=== PATIENT | female | born 1945 | race Caucasian/White ===

== ENCOUNTER 2018-12-25 10:47 | Day surgery (SDC) ==
--- NOTE | 2018-12-23 16:31 | EKG Report ---
Test Performed on : 12/23/2018 4:18:39 PM Test Reason : PAT Blood Pressure : / mmHG Vent. Rate : 080 BPM Atrial Rate : 080 BPM P-R Int : 152 ms QRS Dur : 068 ms QT Int : 348 ms P-R-T Axes : 068 035 068 degrees QTc Int : 401 ms Normal sinus rhythm. Low voltage QRS Septal infarct (cited on or before 11-FEB-2017) Abnormal ECG When compared with ECG of 11-FEB-2017 13:50, No significant change was found Confirmed by Og Cardoza MD ([id number]) on 12/27/2018 9:30:42 PM
[2018-12-23 16:40] LABS: BASO# 0.02 X1000 (0.0-0.2); BASO% 0.2 % (0.0-0.8); EOS# 0.06 X1000 (0.0-0.7); EOS% 0.6 % (0.0-10.0); HEMATOCRIT 37.2 % (37.0-47.0); HEMOGLOBIN 12.7 g/dL (12.0-16.0); IMM GRAN# 0.02 X1000 (0.0-0.04); IMM GRAN% 0.2 % (0.0-0.5); LYMPH# 3.37 X1000 (1.2-3.4); LYMPH% 35.7 % (20.5-51.1); MCH 31.1 PG (27-31); MCHC 34.1 g/dL (33-37); MCV 91.2 FL (81-99); MONO# 0.89 X1000 (0.11-0.59); MONO% 9.4 % (1.7-9.3); MPV 9.3 FL (7.4-10.4); NEUT# 5.09 X1000 (1.4-6.5); NEUT% 53.9 % (42.2-75.2); PLT 306 X1000 (130-400); RBC 4.08 XMIL (4.2-5.4); RDW 12.6 % (11.5-14.5); WBC 9.45 X1000 (4.8-10.8)
[2018-12-23 16:58] LABS: AGAP 13; BUN 19 mg/dL (8-22); CALCIUM 8.7 mg/dL (8.8-10.2); CHLORIDE 102 mmol/L (98-107); COSMO 281; CREATININE 0.6 mg/dL (0.5-0.9); ESTIMATED GFR > 60; GLUCOSE 87 mg/dL (70-104); POTASSIUM 4.2 mmol/L (3.5-5.1); SODIUM 140 mmol/L (136-145); TCO2 25 mmol/L (25-35)
[2018-12-25] MEDS ORDERED: LR 1,000 ML ONE (11:21)
[2018-12-25] MEDS ORDERED: KEFZOL 1 GM/D5W 1 GM/50 ML IVPB ONE (11:21)
[2018-12-25] MEDS ORDERED: VERSED ONE (16:00)
[2018-12-25] MEDS ORDERED: FENTANYL ONE (16:15)
[2018-12-25] MEDS ORDERED: DIPRIVAN 1% ONE (16:15)
[2018-12-25] MEDS ORDERED: XYLOCAINE-MPF 2% ONE (16:15)
[2018-12-25] MEDS ORDERED: ZOFRAN ONE (17:20)
[2018-12-25] MEDS ORDERED: NORCO-7.5 PO PRN (19:30)
[2018-12-25] MEDS ORDERED: NORCO-5 PO PRN (19:30)
[2018-12-25] MEDS ORDERED: NORCO-10 PO PRN (19:30)
[2018-12-25 19:58] VITALS: BP 172/67
--- NOTE | 2018-12-25 20:07 | OPERATIVE NOTE ---
PROCEDURE DATE: 12/25/2018 PREOPERATIVE DIAGNOSIS: Right displaced intra-articular distal radius fracture, 3 part. POSTOPERATIVE DIAGNOSIS: Right displaced intra-articular distal radius fracture, 3 part. PROCEDURE PERFORMED: Open reduction and internal fixation of right 3-part intra-articular distal radius fracture. ANESTHESIA: General. SURGEON: Donovan Tsang MD. TRAVEL GUIDE: Sim Hernandez RN COMPLICATIONS: None. BLOOD LOSS: Minimal. TOURNIQUET TIME: Approximately an hour. DESCRIPTION OF PROCEDURE: The patient was brought to the operative suite and placed in the supine position. After successful administration of general anesthesia, a well-padded tourniquet was placed on the right proximal arm. The right upper extremity was prepped and draped in usual sterile fashion. A longitudinal incision was made overlying the flexor carpi radialis tendon, dissected sharply through the skin into the tendon sheath. The tendon sheath was incised, and the tendon retracted and dissected sharply to the deep tendon sheath. It was then dissected bluntly down the pronator quadratus. The pronator quadratus was elevated off the radial border of the radius exposing the fracture site. The fracture site was cleaned and reduced and then a [employer]ynthe[employer] volar locking plate was placed with 6 buttress pins distally locking and 4 bicortical screws proximally, 3 of them locking. Excellent reduction of the fracture was obtained on AP and lateral images. The wound was copiously irrigated. The fascia was closed with running 0 Vicryl suture. Skin edge was approximated with 4-0 nylon. The patient underwent a block preoperatively. A sterile dressing and a well-padded volar splint was applied. The patient tolerated the procedure well without complication. At the end of the procedure, all counts were correct x2. The patient was transferred to the recovery room in stable condition. cc: Donovan Tsang MD
== END 2018-12-25 20:48 | disposition home or self-care (01) ==
LOC: OR 10:47 → 4N 10:47 → OR 20:48
PROVIDERS: ATTEND Orthopaedic Surgery